=== PATIENT | female | born 1985 | race Caucasian/White ===

== ENCOUNTER → 2017-03-28 | Outpatient (CLI) | payer OTHER ==
--- NOTE | 2017-03-28 20:24 | REP ---
Clinical: Anatomical evaluation. Comparison: None . Findings: Examination demonstrates a single live intrauterine in breech presentation. motion is identified by technologist. Placenta is noted anteriorly and grade one without evidence for placenta previa or abruption. Amniotic fluid volume is normal. Cervix measures 4.2 cm in length and appears closed. Nuchal cord noted. Gestational age by LMP 22 weeks 6 days with KENNY 07/26/2017 . Gestational age by current measurements 23 weeks 2 days with KENNY 07/23/2017 . FHR equals 144 beats per minute. BPD 5.6 cm 23 weeks 0 days HC 21.4 cm 23 weeks 3 days AC 19.4 cm 24 weeks 1 day FL 4.2 cm 23 weeks 6 days HL 4.1 cm 24 weeks 6 days HC/AC ratio 1.10 Estimated weight 640 grams ( 77 percentile). Anatomical assessment demonstrates normal structures including cranium, choroid plexus, cavum, cerebellum/posterior fossa, facial features, lungs, four-chamber heart, diaphragm, stomach, cord insertion/three-vessel cord, kidneys/bladder, spine, and extremities. Impression: Single live intrauterine in breech presentation demonstrating appropriate interval growth. Incomplete evaluation of the cardiac ventricular outflow tracts due to positioning and motion. Anatomical assessment is otherwise complete and normal. Signed by Satnam Vega MD 03/28/2017 05:15 P
== END ==
LOC: M SMT 10:01
PROVIDERS: ATTEND Advanced Practice Midwife
DX: Z34.82 Encounter for supervision of other normal pregnancy, second trimester (principal); Z3A.22 22 weeks gestation of pregnancy

== ENCOUNTER → 2017-04-24 | Outpatient (CLI) | payer OTHER ==
[2017-04-24 18:59] LABS: HEMATOCRIT 32.2 % (36.0-47.0); HEMOGLOBIN 10.8 g/dl (12.0-16.0); MEAN CORPUSCULAR HEMOGLOBIN 32.5 pg (27.0-33.0); MEAN CORPUSCULAR HGB CONC 33.5 g/dl (32.0-36.5); PLATELET COUNT, AUTOMATED 235 10^3/uL (150-450); RED BLOOD COUNT 3.32 10^6/uL (4.00-5.40); WHITE BLOOD COUNT 11.5 10^3/uL (4.0-10.0)
[2017-04-25 11:12] LABS: HEPATITIS C VIRUS ABY INDEX 0.2 INDEX (<0.8)
== END ==
LOC: M SMT 14:06
DX: Z36.9 Encounter for antenatal screening, unspecified (principal); Z3A.27 27 weeks gestation of pregnancy
CPT/HCPCS: 86803

== ENCOUNTER → 2017-06-27 | Outpatient (REF) | payer OTHER | LOC: M LAB REF 13:12 | DX: Z34.83 Encounter for supervision of other normal pregnancy, third trimester (principal) | CPT/HCPCS: 87186 ==

== ENCOUNTER 2017-08-10 11:57 | Inpatient (IN) | payer OTHER ==
[2017-08-10] MEDS ORDERED: PENICILLIN G POTASSIUM IV 5 MU in D5W MINI-BAG PLUS 100 ML IV (13:46)
[2017-08-10 14:11] LABS: HEMATOCRIT 36.1 % (36.0-47.0); HEMOGLOBIN 12.5 g/dl (12.0-15.5); MEAN CORPUSCULAR HEMOGLOBIN 32.5 pg (27.0-33.0); MEAN CORPUSCULAR HGB CONC 34.6 g/dl (32.0-36.5); MEAN CORPUSCULAR VOLUME 93.8 fl (80.0-96.0); PLATELET COUNT, AUTOMATED 176 10^3/uL (150-450); RED BLOOD COUNT 3.85 10^6/uL (4.00-5.40); RED CELL DISTRIBUTION WIDTH 13.1 % (11.5-14.5); WHITE BLOOD COUNT 9.6 10^3/uL (4.0-10.0)
[2017-08-10] MEDS: OXYTOCIN DRIP 30 UNITS in APPROPRIATE DILUENT 1 EA IV (14:11)
[2017-08-10] MEDS: LR 1,000 ML IV ×2 (14:11→21:46)
[2017-08-10 14:37] LABS: AMPHETAMINES URINE REFLEX NEGATIVE (NEGATIVE); BARBITURATES URINE REFLEX NEGATIVE (NEGATIVE); BENZODIAZEPINES URINE REFLEX NEGATIVE (NEGATIVE); CANNABINOIDS URINE REFLEX NEGATIVE (NEGATIVE); COCAINE METABOLITE URINE REFLE NEGATIVE (NEGATIVE); METHADONE URINE REFLEX NEGATIVE (NEGATIVE); OPIATES URINE REFLEX NEGATIVE (NEGATIVE); PHENCYCLIDINE URINE REFLEX NEGATIVE (NEGATIVE)
[2017-08-10] MEDS ORDERED: PENICILLIN G POTASSIUM IV 2.5 MU in APPROPRIATE DILUENT 1 EA IV (18:00)
[2017-08-10] MEDS: PENICILLIN G POTASSIUM IV 5 MU in D5W MINI-BAG PLUS 100 ML IV (22:00)
[2017-08-11] MEDS: LR 1,000 ML IV (00:51)
[2017-08-11] MEDS ORDERED: PENICILLIN G POTASSIUM IV 2.5 MU in APPROPRIATE DILUENT 1 EA IV (02:00)
[2017-08-11 03:50] LABS: CORD GAS ABE A -12.1; CORD GAS ABE V -7.9; CORD GAS HCO3 A 18.1 MEQ/L; CORD GAS O2 SAT A 45.2 %; CORD GAS O2 SAT V 63.1 %; CORD GAS PCO2 A 58.5 mmHg; CORD GAS PCO2 V 43.8 mmHg; CORD GAS PH A 7.108 UNITS; CORD GAS PH V 7.256 UNITS; CORD GAS PO2 A 26.6 mmHg; CORD GAS PO2 V 30.1 mmHg; CORD GAS SBC A 14.2 MEQ/L; CORD GAS SBC V 17.5 MEQ/L; CORD GAS TCO2 A 19.9 MEQ/L; CORD GAS TCO2 V 20.4 MEQ/L
[2017-08-11] MEDS: OXYTOCIN DRIP 30 UNITS in APPROPRIATE DILUENT 1 EA IV (04:33)
[2017-08-11] MEDS: METHYLERGONOVINE MALEATE 0.2 MG/ML VIAL (J2210) IM (04:45)
[2017-08-11] MEDS ORDERED: IBUPROFEN 800 MG TAB PO (04:45)
[2017-08-11] MEDS ORDERED: DOCUSATE SODIUM 100 MG CAP PO (04:45)
[2017-08-11] MEDS ORDERED: ACETAMINOPHEN 500 MG TAB PO (04:45)
[2017-08-11] MEDS: LIDOCAINE 1% MDV 20ML VIAL INFIL (04:45)
[2017-08-11] MEDS ORDERED: ANUSOL HC CREAM 30GM TOP (04:45)
[2017-08-11] MEDS: miSOPROStol 200 MCG TAB (S0191) PR (04:45)
[2017-08-11] MEDS ORDERED: MEASLES,MUMPS,RUBELLA VACCINE INJ (MMR-II) (90707) SC (04:45)
[2017-08-11] MEDS ORDERED: METHYLERGONOVINE MALEATE 0.2 MG TAB PO (04:45)
[2017-08-11] MEDS ORDERED: DIBUCAINE 1% OINTMENT 30GM TOP (04:45)
[2017-08-11] MEDS ORDERED: RHOGAM 300 MCG (1500 IU) INJ (J2790) IM (04:45)
[2017-08-11] MEDS: PRENATAL VITAMINS CHEWABLE TABLET PO (09:00)
[2017-08-11 12:02] LABS: HEMATOCRIT 27.9 % (36.0-47.0); MEAN CORPUSCULAR HEMOGLOBIN 32.4 pg (27.0-33.0); MEAN CORPUSCULAR HGB CONC 34.4 g/dl (32.0-36.5); MEAN CORPUSCULAR VOLUME 94.3 fl (80.0-96.0); PLATELET COUNT, AUTOMATED 170 10^3/uL (150-450); RED BLOOD COUNT 2.96 10^6/uL (4.00-5.40); RED CELL DISTRIBUTION WIDTH 12.8 % (11.5-14.5); WHITE BLOOD COUNT 19.7 10^3/uL (4.0-10.0)
[2017-08-11 12:18] LABS: HEMOGLOBIN 9.6 g/dl (12.0-15.5)
[2017-08-12] MEDS: PRENATAL VITAMINS CHEWABLE TABLET PO (07:29)
== END 2017-08-12 14:50 | disposition home or self-care (01) | DRG 775 ==
LOC: M LDI 11:57 → M OBS 08-11 09:29
PROVIDERS: Advanced Practice Midwife
PROC: 3E033VJ Introduction of Other Hormone into Peripheral Vein, Percutaneous Approach (ICD-10-PCS; 2017-08-10)
PROC: 10E0XZZ Delivery of Products of Conception, External Approach (ICD-10-PCS; principal; 2017-08-11)
PROC: 0HQ9XZZ Repair Perineum Skin, External Approach (ICD-10-PCS; 2017-08-11)
DX: O41.03X0 Oligohydramnios, third trimester, not applicable or unspecified (principal); O99.824 Streptococcus B carrier state complicating childbirth; O48.0 Post-term pregnancy; Z3A.42 42 weeks gestation of pregnancy; O70.0 First degree perineal laceration during delivery; Z37.0 Single live birth

== ENCOUNTER → 2019-10-23 | Outpatient (CLI) | payer OTHER ==
[~2019-10-23] MED LIST: IBUP-1114 PO; MAPA500T2 PO; PRENTAB9 PO
--- NOTE | 2019-10-23 11:39 | REP ---
REASON: anatomy. Multiple ultrasonographic images of the gravid uterus show a single living intrauterine gestation in the cephalic presentation. Doppler interrogation of the heart shows a heart rate of 149 beats per minute. The placenta is anterior and not low-lying. The subjective amniotic fluid volume is within normal limits. The cervix measures 4.1 cm in length and is closed. Evaluation of the maternal adnexal spaces showed no abnormalities. BPD 5.6 cm = 22 weeks 6 days HC 24.8 cm = 22 weeks 6 days AC 18.4 cm = 23 weeks 1 day FL 4.3 cm = 23 weeks 4 days The estimated weight is 581 grams which is at the 54th percentile for a 15-gwkf-8-day gestational age. anatomical structures are seen to be within normal limits are as follows: Thalami, cavum septum pellucidum, cerebellum, cisterna magna, cerebral ventricles, upper lip, four-chamber heart, right ventricular out-flow tract, stomach, three-vessel umbilical cord, kidneys, bladder, spine, and upper and lower extremities. The left ventricular outflow tract and cord insertion were suboptimally visualized. IMPRESSION: Single living intrauterine gestation as described above with an estimated gestational age of 22 weeks 6 days via composite criteria and estimated date of delivery of 02/20/2020 by today's exam. No anomalies were detected, however, I recommend a followup examination to optimally visualize the left ventricular outflow tract and the cord insertion.
== END ==
LOC: M WHC 09:13
PROVIDERS: ATTEND Obstetrics & Gynecology
DX: Z36.89 Encounter for other specified antenatal screening (principal); Z3A.23 23 weeks gestation of pregnancy

== ENCOUNTER → 2019-10-23 | Outpatient (REF) | payer OTHER ==
[2019-10-23 11:36] LABS: HEMATOCRIT 35.5 % (36.0-47.0); HEMOGLOBIN 11.5 g/dl (12.0-15.5); MEAN CORPUSCULAR HEMOGLOBIN 32.2 pg (27.0-33.0); MEAN CORPUSCULAR HGB CONC 32.4 g/dl (32.0-36.5); MEAN CORPUSCULAR VOLUME 99.4 fl (80.0-96.0); PLATELET COUNT, AUTOMATED 204 10^3/uL (150-450); RED BLOOD COUNT 3.57 10^6/uL (4.00-5.40); WHITE BLOOD COUNT 11.4 10^3/uL (4.0-10.0)
[2019-10-23 13:49] LABS: CHLAMYDIA DNA AMPLIFICATION NEGATIVE (NEGATIVE); GC DNA AMPLIFICATION NEGATIVE (NEGATIVE)
[2019-10-24 11:48] LABS: HEPATITIS C VIRUS ABY INDEX 0.1 INDEX (<0.8); HIV 1&2 SCREEN CENTAUR NEGATIVE (NEGATIVE)
== END ==
LOC: M PLALAB 10:13
PROVIDERS: ATTEND Obstetrics & Gynecology
DX: Z36.89 Encounter for other specified antenatal screening (principal); Z3A.23 23 weeks gestation of pregnancy

== ENCOUNTER → 2019-11-26 | Outpatient (CLI) | payer OTHER ==
--- NOTE | 2019-12-05 15:22 | REP ---
OBSTETRIC ULTRASOUND FOR FOLLOW-UP OF ANATOMY Delay in reporting results from hospital computer malfunction from malware. On the previous obstetric ultrasound for anatomy dated 10/23/2019, the cardiac left ventricular outflow tract and the umbilical cord insertion were not optimally demonstrated. The remainder of the anatomy was unremarkable. The study today is for follow-up of the umbilical cord insertion and cardiac left ventricular outflow tract. FINDINGS: On the study today, the left ventricular outflow tract is adequately demonstrated and is unremarkable. On the study today, both the umbilical cord insertion and the placental umbilical cord insertion are unremarkable. Discussion with the securities research analyst indicates that the placental insertion is centrally placed on the placenta. The remainder of the anatomy was unremarkable previously and is not repeated. There is again a single intrauterine gestation in a cephalic presentation. The placenta is grade 1. There was no previa or abruptio. The composite gestational age by the ultrasound today is 28 weeks 2 days. The estimated weight by the ultrasound today is 1162 grams (2 pounds 9 ounces). This is the 43rd percentile. The amniotic fluid volume subjectively is normal. The amniotic fluid index is 19.05. Cervix measures 3.2 cm in length. Estimated date of delivery (KENNY) is 02/19/2020. MTDD
== END ==
LOC: M WHC 09:09
PROVIDERS: ATTEND Advanced Practice Midwife
DX: O09.522 Supervision of elderly multigravida, second trimester (principal); Z3A.28 28 weeks gestation of pregnancy

== ENCOUNTER → 2019-11-28 | Outpatient (CLI) | payer OTHER ==
[2019-11-28 11:48] LABS: HEMATOCRIT 32.9 % (36.0-47.0); HEMOGLOBIN 10.9 g/dl (12.0-15.5); MEAN CORPUSCULAR HEMOGLOBIN 32.3 pg (27.0-33.0); MEAN CORPUSCULAR HGB CONC 33.1 g/dl (32.0-36.5); MEAN CORPUSCULAR VOLUME 97.6 fl (80.0-96.0); PLATELET COUNT, AUTOMATED 218 10^3/uL (150-450); RED BLOOD COUNT 3.37 10^6/uL (4.00-5.40); WHITE BLOOD COUNT 11.5 10^3/uL (4.0-10.0)
== END ==
LOC: M PLALAB 10:21
PROVIDERS: ATTEND Advanced Practice Midwife
DX: O09.522 Supervision of elderly multigravida, second trimester (principal); Z3A.00 Weeks of gestation of pregnancy not specified
CPT/HCPCS: 36415; 85027; 86850; 86900; 86901; G0463

== ENCOUNTER → 2020-01-20 | Outpatient (REF) | payer OTHER | LOC: M SFHCWAGY 12:46 | PROVIDERS: ATTEND Advanced Practice Midwife | DX: Z34.93 Encounter for supervision of normal pregnancy, unspecified, third trimester (principal); Z3A.35 35 weeks gestation of pregnancy ==